=== PATIENT | male | born 1945 | race African-American/Black ===

== ENCOUNTER 2022-09-04 10:50 | Emergency (ER) | payer OTHER, MEDICAID ==
[~2022-09-04] VITALS: Ht 172.7 cm; Wt 72.0 kg
[~2022-09-04 10:50] MED LIST: AZIT500T8 MT; P20 MT
[2022-09-04] MEDS ORDERED: MAGNESIUM 2 G PREMIX 50 ML IV STA (10:58)
[2022-09-04] MEDS ORDERED: IPRATROPIUM BROMIDE (0.02%) 0.5MG/2.5ML NEB HHN STA (10:58)
[2022-09-04] MEDS ORDERED: METHYLPREDNISOLONE SOD SUCC 125MG/2ML (ACT-O-VIAL) IV STA (10:58)
[2022-09-04] MEDS ORDERED: ALBUTEROL (0.083%) 2.5MG/3ML NEB HHN STA (10:58)
[2022-09-04 11:40] VITALS: PULSE 73; RESP 22; O2SAT 100
[2022-09-04 11:45] LABS: HEMOGLOBIN. 14.2 g/dL (14.0-18.0); MEAN CORPUSCULAR HEMOGLOBIN 27.5 pg (28.0-32.0); MEAN CORPUSCULAR HGB CONC 31.5 g/dL (31.0-37.0); MEAN CORPUSCULAR VOLUME 87.4 fL (80.0-94.0); MEAN PLATELET VOLUME 11.5 fl (7.4-10.4); PLATELET 136 x1000/uL (130-400); RED BLOOD CELL COUNT 5.15 mill/uL (4.7-6.1); WHITE BLOOD COUNT 3.2 x1000/uL (4.5-11.0)
[2022-09-04 11:50] LABS: DIFFERENTIAL COMMENT 1
[2022-09-04 11:51] LABS: CHLORIDE 93 mEq/L (98-107); INDEX HEMOLYSI 4 (1-3); INDEX ICTERIC 2 (1-4); INDEX LIPEMIC 1 (1-3); SODIUM 135 mEq/L (136-145)
[2022-09-04 11:52] LABS: POTASSIUM 4.2 mEq/L (3.5-5.1)
[2022-09-04 12:00] LABS: ALANINE AMINOTRANSFERASE 41 IU/L (13-61); ALBUMIN 3.5 g/dL (3.4-5.0); ASPARTATE AMINOTRANSFERASE 94 IU/L (15-37); BILIRUBIN TOTAL 2.4 mg/dL (0.1-1.0); CALCIUM 8.6 mg/dL (8.5-10.1); CARBON DIOXIDE 37 mEq/L (21-32); CREATININE 0.6 mg/dL (0.6-1.3); GLUCOSE 77 mg/dL (70-105); NT PRO B-TYPE NATRIURETIC PEP 354 pg/mL (5-125); PROTEIN TOTAL 8.2 g/dL (6.0-8.3); TROPONIN I HIGH SENSITIVITY 41 ng/L (<78); UREA NITROGEN BLOOD 12 mg/dL (7-21)
[2022-09-04] MEDS ORDERED: METHYLPREDNISOLONE SOD SUCC 125MG VIAL IV STA (12:04)
[2022-09-04 13:06] LABS: PLATELET ESTIMATE NORMAL
[2022-09-04 15:00] VITALS: BP 150/89; PULSE 72; RESP 22; TEMP 98.4
== END 2022-09-04 16:40 | disposition short-term general hospital (02) ==
LOC: ER 10:50 → CANBEDREQ 09-05 23:29
DX: J44.9 Chronic obstructive pulmonary disease, unspecified (principal); I10 Essential (primary) hypertension; Z20.822 Contact with and (suspected) exposure to COVID-19
CPT/HCPCS: 99285; 96365; 71045; 96366; 96375; 87426; 80053; 83880; 85025; 84484; 36415; 93005; 94644; 96376; J3475; J2930; C9803